=== PATIENT | female | born 1990 ===

== ENCOUNTER 2022-09-03 10:26 | Emergency (ER) | payer BC ==
[2022-09-03] MEDS ORDERED: Sodium Chloride 0.9% 2.5 ML Syringe FLUSH PRN (10:51)
[2022-09-03] MEDS ORDERED: Sodium Chloride 0.9% 10 ML Syringe FLUSH PRN (10:51)
[2022-09-03 11:20] LABS: CARBON DIOXIDE,CO2 22.8 mmol/L (21.0-32.0); POTASSIUM,K 3.5 mmol/L (3.5-5.1)
== END 2022-09-03 15:59 | disposition home or self-care (01) ==
LOC: MW.ED 10:26
DX: O99.891 Other specified diseases and conditions complicating pregnancy (principal); R55 Syncope and collapse; Z91.040 Latex allergy status; Z3A.17 17 weeks gestation of pregnancy
CPT/HCPCS: 36415; 71045; 80053; 84484; 85025; 99284; J3490